=== PATIENT | female | born 1995 | race Caucasian/White ===

== ENCOUNTER 2017-01-06 05:39 | Outpatient (CLI) | payer OTHER ==
[~2017-01-06] VITALS: Ht 170.2 cm; Wt 71.2 kg
[2017-01-08] MEDS ORDERED: DICY10CA59 PO (14:04)
== END 2017-01-06 11:21 ==
LOC: PREOP 05:39
PROVIDERS: ATTEND Surgery
DX: Z01.818 Encounter for other preprocedural examination (principal); R10.32 Left lower quadrant pain

== ENCOUNTER 2017-01-08 11:08 | Day surgery (SDC) | payer OTHER ==
[~2017-01-08] VITALS: Ht 170.2 cm; Wt 71.2 kg
[2017-01-08] MEDS ORDERED: LIDOCAINE JELLY 2% (XYLOCAINE) 5 ML TUBE MM PRN (11:30)
--- OUTSIDE RECORDS SUMMARY | 2017-01-08 11:33 | XMS REPORT | Continuity of Care Document ---
Author Author [employer] Organization [facility] Address Unknown Phone Unavailable Care Team Providers Care [facility] [employer] Name Role Phone [employer] Unavailable Unavailable Problems Problem Status Onset Date Classification Date Reported Comments Source Sleep deprivation (finding) 04/19/2015 Diagnosis 2014 [facility] Migraine (disorder) 2014 Diagnosis 04/23/2015 [facility] Medications Medication Details Route Status Patient Instructions Ordering Provider Order Date Source No Known Medications No known medications Active [facility] Allergies, Adverse Reactions, Alerts Immunizations Immunization Date Given Site Status Last Updated Comments Source No data available for this section No data available for this section [facility] Results Vital Signs Encounters Location Location Details Encounter Type Encounter Number Reason For Visit Attending Provider ADM Date DC Date Status Source [facility] [id number] [place] Dwyer [id number]/20/2015 [facility] Procedures Procedure Code Date Perfomer Comments Source wisdom teeth [facility] Plan of Care Social History Assessment and Plan Family History Value Date Source Advance Directives Order Name Results Value Date Source
[2017-01-08 11:34] VITALS: BP 112/74
[2017-01-08] MEDS ORDERED: NS IV 500 ML 500 ML IV PRN (11:35)
--- NOTE | 2017-01-08 11:42 | Conscious Sedation/ASA ---
Conscious Sedation Pre-Proced Time Reviewed: 11:30 ASA Class: 1 Airway Mallampati Classification: ([place] appropriate class) I. II. III, IV Lungs Heart ASA score ASA 1: a normal healthy patient ASA 2: a patient with a mild systemic disease (mid diabetes, controlled hypertension, obesity ASA 3: a patient with a severe systemic disease that limits activity (angina , COPD, prior Myocardial infarction) ASA 4: a patient with an incapacitating disease that is a constant threat to life (CHF, renal failure) ASA 5: a moribund patient not expected to survive 24 hrs. (ruptured aneurysm) ASA 6: a declared brain patient whose organs are being harvested. For emergent operations, add the letter E after the classification Grade 2 Sedation Plan: Analgesia, Amnesia, Plan communicated to team members, Discussed options with patient/fam, Discussed risks with patient/fam Note The patient is an appropriate candidate to undergo the planned procedure, sedation, and anesthesia. The patient immediately re-assessed prior to indication. TOMA LEI MD Jan 08, 2017 11:42
--- NOTE | 2017-01-08 11:43 | Progress Note-Pre Operative ---
Pre-Operative Progress Note H&P Reviewed The H&P was reviewed, patient examined and no changes noted. Date Seen by Provider: Jan 08, 2017 Time Seen by Provider: 11:30 Date H&P Reviewed: Jan 08, 2017 Time H&P Reviewed: 11:30 Pre-Operative Diagnosis: abd pain, family hx colon cancer TOMA LEI MD Jan 08, 2017 11:43
[2017-01-08] MEDS ORDERED: ACETAMINOPHEN 325 MG TABLET/CAPLET (TYLENOL) PO PRN (11:45)
[2017-01-08] MEDS ORDERED: morphine INJ 10 MG/ML 1ML (SYR OR VIAL) IV PRN (11:45)
[2017-01-08] MEDS ORDERED: HYDROcodone/APAP 5 MG/325 MG (LORTAB) TAB PO PRN (11:45)
[2017-01-08] MEDS ORDERED: ONDANSETRON 4 MG/2 ML (SDV) Z0FRAN IV PRN (11:45)
[2017-01-08] MEDS ORDERED: LIDOCAINE JELLY 2% (XYLOCAINE) 5 ML TUBE ONE (12:37)
[2017-01-08] MEDS ORDERED: fentaNYL INJECTION 100 MCG/2 ML AMP ONE ×2 (12:37→12:38)
[2017-01-08] MEDS ORDERED: MIDAZOLAM 2 MG/2 ML (VERSED) VIAL ONE ×6 (12:38→13:34)
[2017-01-08] MEDS: MIDAZOLAM 2 MG/2 ML (VERSED) VIAL IVP PRN ×6 (13:12→13:40)
[2017-01-08] MEDS: fentaNYL INJECTION 100 MCG/2 ML AMP IVP PRN ×4 (13:13→13:24)
--- NOTE | 2017-01-08 14:03 | Progress Note-Post Operative ---
Post-Operative Progess Note Surgeon (s)/Technician [employer]mar[employer] Equipment (s) Surgeon TOMA LEI MD Technician [employer]marine Cable Equipment: none Pre-Operative Diagnosis abd pain, family hx colon cancer Post-Operative Diagnosis normal colon and rectum Procedure & Operative Findings Date of Procedure 01/08/17 Procedure Performed/Findings Colonoscopy Anesthesia Type CS Estimated Blood Loss Estimated blood loss (mL): minimal Specimens/Packing Specimens Removed none TOMA LEI MD Jan 08, 2017 2:03 pm
[2017-01-08] MEDS ORDERED: DICY10CA59 PO (14:04)
--- NOTE | 2017-01-08 14:04 | Discharge Inst-Surgical ---
D/C Lap Instructions-KIDO New, Converted, or Re-Newed RX: RX on Chart Follow Up PRN Activity as tolerated High Fiber Diet 25g or more per day Avoid Alcohol, Caffeine, Spicy Cricket and Acid foods. Drink 64 fluid oz or more of fluids per day. Symptoms to Report: Fever over 101 degree F, Nausea/Vomiting If any problems/questions: Contact your physician or go to Emergency Room TOMA LEI MD Jan 08, 2017 2:04 pm
[2017-01-08 14:20] VITALS: BP 84/42
[2017-01-08 14:49] VITALS: BP 108/57
[2017-01-08 14:51] VITALS: BP 108/57
--- NOTE | 2017-01-09 15:11 | OPERATIVE REPORT ---
DATE OF SERVICE: 01/08/2017 PREOPERATIVE DIAGNOSES: Left lower quadrant abdominal pain, history of constipation, family history of colon cancer with her maternal grandmother and grandfather having the disease. POSTOPERATIVE DIAGNOSIS: Normal colon and rectum. PROCEDURE: Colonoscopy. SURGEON: Dr. Lei. ANESTHESIA: Conscious sedation. ESTIMATED BLOOD LOSS: Minimal. FINDINGS: Normal colon, rectum as well as anal canal. DISPOSITION: The patient tolerated the procedure well. INDICATIONS: The patient is a 21-year-old female who has had left lower quadrant abdominal pain. She reports that this first started approximately one year ago and did seek medical attention, was diagnosed with having an ileus. She reports that over time she has had reoccurring symptoms with the last occurrence approximately three weeks ago with pain in the left lower abdominal quadrant, which is a dull ache. She also does report a history of constipation. She does not report any red blood per rectum nor any dark tarry stools. She also does not report any family history of inflammatory bowel disease or signs or symptoms of endometriosis. She does report a family history of colon cancer with her maternal grandmother and grandfather having the disease. DESCRIPTION OF PROCEDURE: The patient was brought to the endoscopy suite, laid in the left lateral decubitus position. After adequate IV pain and sedative medications and conscious sedation anesthesia, a digital rectal examination was performed. No significant hemorrhoids were identified. Normal sphincter tone was felt and there were no palpable masses. The endoscope was then intubated to the anus and rectum and gently insufflated. The endoscope was then advanced to the valves of the [place] of rectum with no polyps or any neoplasms identified. We then proceeded through the sigmoid colon where no diverticulosis identified. The endoscope was then advanced to the remainder of the descending, transverse and ascending colon to the cecum. These segments were normal as well. There were no mucosal inflammatory changes. There were also no dark pigmented spots to indicate any endometriosis. There were also no polyps or any neoplasms identified. The endoscope was then slowly withdrawn while taking a second look and suctioning of residual air with no additional findings. The patient tolerated the procedure well. We will recommend medical management with a high fiber diet with at least 30 grams of fiber per day as well as at least 64 fluid ounces of water to promote soft stools on a daily basis. We feel that the most likely etiology of her symptoms as chronic constipation as well as possibility of a long or redundant colon. Job ID: [id number] DocumentID: [id number] Dictated Date: 01/08/2017 13:59:25 Belt Operator Date: 01/09/2017 05:21:07 Dictated By: TOMA LEI MD
== END 2017-01-08 14:53 | disposition home or self-care (01) ==
LOC: ENDO 11:08
PROVIDERS: ATTEND Surgery
DX: R10.32 Left lower quadrant pain (principal); K59.09 Other constipation; Z80.0 Family history of malignant neoplasm of digestive organs; Z79.899 Other long term (current) drug therapy
CPT/HCPCS: 84703

== ENCOUNTER → 2018-03-14 | Outpatient (CLI) | payer OTHER ==
[~2018-03-14] MED LIST: DICY10CA59 PO
[2018-03-14 08:52] LABS: BILIRUBIN,URINE NEGATIVE (NEGATIVE); CLARITY,URINE CLEAR; COLOR,URINE YELLOW; GLUCOSE, URINE (UA) NEGATIVE (NEGATIVE); KETONES,URINE NEGATIVE (NEGATIVE); LEUKOCYTE ESTERASE ,URINE 2+ (NEGATIVE); NITRITE,URINE NEGATIVE (NEGATIVE); PH,URINE 6 (5-9); PROTEIN,URINE NEGATIVE (NEGATIVE); UROBILINOGEN,URINE NORMAL (NORMAL)
[2018-03-14 08:53] LABS: BASOPHILS % (AUTO) 1 % (0-10); EOSINOPHILS # (AUTO) 0.1 10^3/uL (0.0-0.3); EOSINOPHILS % (AUTO) 2 % (0-10); HEMATOCRIT 37 % (35-52); HEMOGLOBIN 12.8 G/DL (11.5-16.0); LYMPHOCYTES # (AUTO) 1.6 X 10^3 (1.0-4.0); LYMPHOCYTES % (AUTO) 39 % (12-44); MEAN CORPUSCULAR HEMOGLOBIN 32 PG (25-34); MEAN CORPUSCULAR HGB CONC 35 G/DL (32-36); MEAN CORPUSCULAR VOLUME 91 FL (80-99); MEAN PLATELET VOLUME 9.6 FL (7.4-10.4); MONOCYTES # (AUTO) 0.4 X 10^3 (0.0-1.0); MONOCYTES % (AUTO) 9 % (0-12); NEUTROPHILS # (AUTO) 2.1 X 10^3 (1.8-7.8); NEUTROPHILS % (AUTO) 50 % (42-75); PLATELET COUNT 244 10^3/uL (130-400); RED BLOOD COUNT 4.01 10^6/uL (4.35-5.85); RED CELL DISTRIBUTION WIDTH 11.9 % (10.0-14.5); WHITE BLOOD COUNT 4.2 10^3/uL (4.3-11.0)
[2018-03-14 09:00] LABS: BACTERIA,URINE TRACE /HPF; SQUAMOUS EPITHELIAL CELL,UR 25-50 /HPF
[2018-03-14 09:01] LABS: YEAST,URINE FEW /HPF
--- NOTE | 2018-03-14 09:04 | Diagnostic Imaging Report ---
PROCEDURE: US Abdomen, limited. TECHNIQUE: Multiple realtime grayscale images were obtained over the abdomen in various projections. INDICATION: Abdominal pain. FINDINGS: The liver is normal in size at 15 cm. No discrete liver mass is identified. The gallbladder is without stones or sludge. No wall thickening or biliary duct dilatation is identified. Pancreas is obscured by bowel gas. The right kidney is unremarkable. There is no ascites. IMPRESSION: Unremarkable right upper quadrant ultrasound. Dictated by: Dictated on workstation # [id number]
[2018-03-14 09:11] LABS: ALANINE AMINOTRANSFERASE 12 U/L (0-55); ALBUMIN 4.6 GM/DL (3.2-4.5); ALKALINE PHOSPHATASE 46 U/L (40-136); AMYLASE 53 U/L (25-125); BILIRUBIN,TOTAL 0.5 MG/DL (0.1-1.0); BUN/CREATININE RATIO 16; CALCIUM 9.4 MG/DL (8.5-10.1); CARBON DIOXIDE 24 MMOL/L (21-32); CHLORIDE 104 MMOL/L (98-107); CHOLESTEROL 173 MG/DL (< 200); CREATININE SERUM 0.68 MG/DL (0.60-1.30); GFR ESTIMATED > 60; GLUCOSE 89 MG/DL (70-105); HDL CHOLESTEROL 52 MG/DL (40-60); LIPASE 11 U/L (8-78); SODIUM 138 MMOL/L (135-145); TOTAL PROTEIN 7.4 GM/DL (6.4-8.2); TRIGLYCERIDES 54 MG/DL (<150); VLDL CHOLESTEROL 11 MG/DL (5-40)
== END ==
LOC: RAD 07:56
PROVIDERS: ATTEND Internal Medicine
DX: D64.9 Anemia, unspecified (principal); R10.9 Unspecified abdominal pain; R53.83 Other fatigue; R73.9 Hyperglycemia, unspecified
CPT/HCPCS: 36415; 76705; 80053; 80061; 81000; 82150; 83036; 83690; 84443; 84703; 85025; 87088